=== PATIENT | male | born 1960 | race Caucasian/White ===

== ENCOUNTER 2018-12-01 14:06 | Inpatient (IN) | payer OTHER ==
[~2018-12-01] VITALS: Ht 182.9 cm; Wt 108.8 kg
[~2018-12-01 14:06] MED LIST: heparin 10,000 units/1 ML INJ ONE
[2018-12-01] MEDS ORDERED: aspirin 81mg tab.chew PO ONE (14:10)
[2018-12-01] MEDS ORDERED: normal saline 1000ML IV soln IVB ONE ×2 (14:10→15:10)
[2018-12-01] MEDS ORDERED: ondansetron/PF 4mg/2ml inj IV ONE ×2 (14:10→15:10)
[2018-12-01 14:20] LABS: BASOPHILS % (AUTO) 0.4 % (0-1); EOSINOPHILS # (AUTO) 0.3 X10'3 (0-0.9); EOSINOPHILS % (AUTO) 2.3 % (0-6); HEMATOCRIT 51.2 % (42.0-52.0); HEMOGLOBIN 17.1 g/dl (14.0-17.9); LYMPHOCYTES # (AUTO) 2.4 X10'3 (1.1-4.8); LYMPHOCYTES % (AUTO) 21.3 % (21-51); MEAN CORPUSCULAR HEMOGLOBIN 29.4 PG (27.0-31.0); MEAN CORPUSCULAR HGB CONC 33.5 % (33.0-36.5); MEAN CORPUSCULAR VOLUME 87.6 FL (78-98); MEAN PLATELET VOLUME 8.8 FL (7.4-10.4); MONOCYTES # (AUTO) 0.6 X10'3 (0-0.9); MONOCYTES % (AUTO) 5.3 % (2-12); NEUTROPHILS # (AUTO) 8.1 X10'3 (1.8-7.7); NEUTROPHILS % (AUTO) 70.7 % (42-75); PLATELET COUNT 275 X10'3 (140-440); RED BLOOD COUNT 5.84 X10'6 (4.70-6.10); RED CELL DISTRIBUTION WIDTH 13.8 % (11.5-14.5); WHITE BLOOD COUNT 11.4 X10'3 (4.5-11.0)
[2018-12-01] MEDS: morphine 4 MG/ML inj SYRINge IV PRN ×3 (14:23→16:28)
[2018-12-01 14:40] LABS: ALANINE AMINOTRANSFERASE 38 U/L (12-78); ALBUMIN 4.4 G/DL (3.4-5.0); ALBUMIN/GLOBULIN RATIO 1.3 (1.1-1.5); ALKALINE PHOSPHATASE 71 IU/L (46-116); ANION GAP 13 (8-16); ASPARTATE AMINO TRANSFERASE 26 U/L (10-37); BILIRUBIN,TOTAL 0.7 MG/DL (0.1-1.0); BLOOD UREA NITROGEN 18 MG/DL (7-18); BUN/CREATININE RATIO 15.4 (5.4-32.0); CALCIUM 9.3 MG/DL (8.5-10.1); CHLORIDE 101 MMOL/L (99-107); CREATININE 1.17 MG/DL (0.60-1.10); GLUCOSE 114 MG/DL (70-104); SODIUM 140 MMOL/L (135-145); TOTAL CARBON DIOXIDE 26.4 MMOL/L (24-32); TOTAL PROTEIN 7.9 G/DL (6.4-8.2); eGFR 64 ML/MIN
[2018-12-01 14:46] LABS: MAGNESIUM 2.2 MG/DL (1.5-2.4)
--- NOTE | 2018-12-01 15:01 | NUR ---
PT TROP 0.07 AWAITING CARDIOLOGY. [facility] CP 04/18 INFORMED
[2018-12-01] MEDS ORDERED: enoxaparin 100mg/ml syringe SUBCUT ONE (15:10)
--- NOTE | 2018-12-01 15:24 | NUR ---
PT MEDICATED FOR PAIN. CP 3-02/16 2ND PIV STARTED
[2018-12-01 15:27] LABS: ETHANOL < 0.010 GM/DL (0.0-0.010); LIPASE 178 U/L (73-393)
[2018-12-01] MEDS ORDERED: nitroGLYCERIN 1gm ointment UD TP ONE (15:30)
[2018-12-01] MEDS ORDERED: magnesium Cl slow-release 64mg tablet PO PRN (15:50)
[2018-12-01] MEDS ORDERED: mag hydrox/Alum hydrox/simeth 30ml oral suspension PO PRN (15:50)
[2018-12-01] MEDS ORDERED: magnesium 4gm in 100ml NS 100 ML IV PRN (15:50)
[2018-12-01] MEDS ORDERED: acetaminophen 325mg tablet PO PRN ×2 (15:50)
[2018-12-01] MEDS ORDERED: nitroGLYCERIN-Tridil 50MG/D5W 250 ML IV PRN ×3 (15:50→16:19)
[2018-12-01] MEDS ORDERED: magnesium 2GM in 50ml NS 50 ML IV PRN (15:50)
[2018-12-01] MEDS ORDERED: potassium Cl 20 mEq SR tablet PO PRN ×2 (15:50)
[2018-12-01] MEDS ORDERED: potassium Cl 40MEQ/NS 500ml 500 ML IV PRN ×2 (15:50)
[2018-12-01] MEDS ORDERED: morphine 4 MG/ML inj SYRINge IV PRN (15:50)
[2018-12-01] MEDS ORDERED: magnesium hydroxide 30ml (MOM) UD suspension PO PRN (15:50)
[2018-12-01] MEDS ORDERED: nitroGLYCERIN 0.4mg SUBLingual tab SL PRN (15:50)
[2018-12-01] MEDS ORDERED: mag hydrox/Alum hydrox/simeth 30ml oral suspension PO ONE (16:10)
[2018-12-01 16:12] LABS: PHOSPHORUS 3.3 MG/DL (2.3-4.5)
[2018-12-01] MEDS ORDERED: iohexol 350MG/ML 100ml bottle IV ONE (16:22)
[2018-12-01] MEDS: pantoprazole 40 MG vial IV SCH (16:24)
--- NOTE | 2018-12-01 16:40 | NUR ---
REPORT TO ART PT TO CT AND THEN TO FLOOR
[2018-12-01 17:30] VITALS: BP 106/67
[2018-12-01] MEDS: ondansetron/PF 4mg/2ml inj IV PRN (17:30)
--- NOTE | 2018-12-01 17:30 | NUR ---
Patient admitted into 310 up from ER. Adult female with him by bedside. Placed on monitor. VSS. Denied any pain. Placed on 2 LPM NC O2. No s/s of distress. Call light in reach. Side rails x 2, bed in low position for safety.
--- NOTE | 2018-12-01 18:00 | NUR ---
Patient in room MED 310. I have received report from Art RN and had the opportunity to ask questions and assume patient care. at bedside pt in no apparent distress or pain.
--- NOTE | 2018-12-01 18:30 | NUR ---
pt vomited 600ml. states he feels better now. will continue to monitor.
--- NOTE | 2018-12-01 18:39 | NUR ---
Orientee documentation: I have reviewed and agree with all interventions, assessments performed and documented by ALEXANDRIA Abreu .
[2018-12-01 19:00] VITALS: BP 103/65
[2018-12-01] MEDS: normal saline 1000ml 1,000 ML IV SCH (19:00)
[2018-12-01] MEDS: metoprolol tartrate 12.5mg (1/2 tablet) PO SCH (20:00)
[2018-12-01] MEDS: K and/or MAG REPLACEMENT MC SCH (20:01)
[2018-12-01] MEDS: enoxaparin 100mg/ml syringe SUBCUT SCH (20:22)
[2018-12-01 21:00] VITALS: BP 105/65
[2018-12-01] MEDS ORDERED: temazepam 15mg capsule PO PRN (21:00)
--- NOTE | 2018-12-01 21:24 | NUR ---
called Dr Womack re 6 hr trop back at 2.11, up from 0.37. pt getting anticoag'd with lovenox 100mg BID, on nitro gtt for chest pain. EKG SR and pt asymptomatic. no new orders at this time.
[2018-12-01] MEDS ORDERED: metoclopramide 5 mg/ml inj IV PRN (21:45)
[2018-12-01 23:00] VITALS: BP 124/79
[2018-12-02] VITALS (17 sets, daily range): BP systolic 99–124; BP diastolic 58–77
[2018-12-02] MEDS: normal saline 1000ml 1,000 ML IV SCH ×3 (01:50→21:50)
[2018-12-02 02:44] LABS: HEMATOCRIT 43.8 % (42.0-52.0); HEMOGLOBIN 14.6 g/dl (14.0-17.9); MEAN CORPUSCULAR HEMOGLOBIN 29.2 PG (27.0-31.0); MEAN CORPUSCULAR HGB CONC 33.2 % (33.0-36.5); MEAN PLATELET VOLUME 8.7 FL (7.4-10.4); PLATELET COUNT 214 X10'3 (140-440); RED BLOOD COUNT 4.98 X10'6 (4.70-6.10); RED CELL DISTRIBUTION WIDTH 13.3 % (11.5-14.5); WHITE BLOOD COUNT 11.5 X10'3 (4.5-11.0)
[2018-12-02 02:55] LABS: ALBUMIN 3.4 G/DL (3.4-5.0); ANION GAP 10 (8-16); BLOOD UREA NITROGEN 16 MG/DL (7-18); BUN/CREATININE RATIO 15.4 (5.4-32.0); CALCIUM 7.4 MG/DL (8.5-10.1); CHLORIDE 105 MMOL/L (99-107); CHOL/HDL RATIO 3.6 (0.00-4.99); CHOLESTEROL 124 MG/DL (0-200); CREATININE 1.04 MG/DL (0.60-1.10); GLUCOSE 137 MG/DL (70-104); HDL CHOLESTEROL 34 MG/DL (35-60); LDL CHOLESTEROL 77 MG/DL (50-100); MAGNESIUM 1.8 MG/DL (1.5-2.4); PHOSPHORUS 3.1 MG/DL (2.3-4.5); SODIUM 139 MMOL/L (135-145); TOTAL CARBON DIOXIDE 23.8 MMOL/L (24-32); TRIGLYCERIDES 168 MG/DL (20-135); eGFR 73 ML/MIN
--- NOTE | 2018-12-02 03:11 | NUR ---
called Dr Womack re 12hr trop back at 13.94, EKG showing SR no ST elevation, VSS, chest pain 3/10 with no changes. still on nitro gtt at 10mcg. only new order at this time is to make pt NPO for possible cath with Dr Simms in AM.
[2018-12-02] MEDS: ondansetron/PF 4mg/2ml inj IV PRN (06:57)
[2018-12-02] MEDS ORDERED: proCHLORperazine 10 MG/2 ml inj IV PRN (07:25)
--- NOTE | 2018-12-02 07:25 | NUR ---
Pt had a 150ml emesis. Treated with Zofran. Spoke with Dr. Valadez who wanted updates. Orders received. Will call Dr. Simms.
--- NOTE | 2018-12-02 07:29 | NUR ---
Notified Dr. Simms of Trop, nausea.
[2018-12-02] MEDS ORDERED: pantoprazole 40mg Tablet.DR PO SCH (07:30)
[2018-12-02] MEDS: K and/or MAG REPLACEMENT MC SCH (08:00)
[2018-12-02] MEDS: enoxaparin 100mg/ml syringe SUBCUT SCH ×2 (08:00→20:00)
[2018-12-02] MEDS: tirofiban 5mg in NS 100mL 100 ML IV SCH ×3 (08:17→15:18)
--- NOTE | 2018-12-02 08:17 | NUR ---
Notified Dr. Simms regarding trop of 29.35. He said to not do any more Trop and to make the pt npo after breakfast.
[2018-12-02] MEDS: aspirin 325mg tablet PO SCH (08:30)
[2018-12-02] MEDS: atorvastatin 20mg tablet PO SCH (09:08)
[2018-12-02] MEDS: pantoprazole 40 MG vial IV SCH (09:08)
[2018-12-02] MEDS: metoprolol tartrate 12.5mg (1/2 tablet) PO SCH ×2 (09:08→21:12)
[2018-12-02] MEDS ORDERED: CARV6.253 PO ×2 (09:57→10:02)
[2018-12-02] MEDS ORDERED: FLU VACC QUAD 2018(5 YR UP)/PF 60 MCG/0.5 ML SYRINGE IM ONE (10:00)
[2018-12-02] MEDS ORDERED: GLUC100017 (10:01)
[2018-12-02] MEDS ORDERED: LOSA25TA41 PO (10:03)
[2018-12-02] MEDS ORDERED: ASPI-611 PO (10:03)
[2018-12-02] MEDS ORDERED: ATOR-2 PO (10:04)
[2018-12-02] MEDS ORDERED: LORA10TA7 PO (10:04)
--- NOTE | 2018-12-02 10:08 | NUR ---
PAGER ID: [phone] MESSAGE: Dr. Gupta, the med rec for pt Ownes in 310 is complete and ready for your review. Art, [phone]
[2018-12-02] MEDS ORDERED: iohexol 350MG/ML 100ml bottle IV ONE (16:05)
[2018-12-02] MEDS ORDERED: LIDOcaine 1% (10mg/ml)w/preservative injection 20ml MDV ONE (16:05)
[2018-12-02] MEDS ORDERED: fentaNYL/PF 50MCG/1 ML 2ML syringe ONE (16:06)
[2018-12-02] MEDS ORDERED: midazolam 2 mg/2 ml injection ONE ×2 (16:06→16:42)
--- NOTE | 2018-12-02 16:18 | NUR ---
Pt to forestry farm laborer
[2018-12-02] MEDS ORDERED: proCHLORperazine 10 MG/2 ml inj ONE (16:22)
[2018-12-02] MEDS ORDERED: heparin 1,000unit/ml 10ml vial 10 ML ONE (16:47)
[2018-12-02] MEDS ORDERED: iohexol 350 MG/ML 50ML vial IV ONE (16:59)
[2018-12-02] MEDS ORDERED: heparin 25,000 UNIT/250ml bag 250 ML IV ONE (17:33)
--- NOTE | 2018-12-02 18:01 | NUR ---
Pt returned from agriculture laboratory technician. Pt procedure sight is closed, no hematoma present at this time. Pt instructed to lay flat. Pt orders faxed to pharmacy.
[2018-12-02] MEDS ORDERED: HYDROcodone/acetaminophen 5mg/325mg tablet PO PRN (18:10)
[2018-12-02] MEDS ORDERED: OXAZEpam 15mg capsule PO PRN (18:10)
--- NOTE | 2018-12-02 18:26 | NUR ---
PAGER ID: [phone] MESSAGE: [phone] [place], Please call nurse back to clarify medication orders. Lois ext [phone]
[2018-12-02] MEDS: heparin 25,000 UNIT/250ml bag 250 ML IV SCH (18:29)
[2018-12-02 18:43] LABS: BASOPHILS % (AUTO) 0.1 % (0-1); EOSINOPHILS # (AUTO) 0.2 X10'3 (0-0.9); EOSINOPHILS % (AUTO) 1.1 % (0-6); HEMATOCRIT 40.9 % (42.0-52.0); HEMOGLOBIN 13.6 g/dl (14.0-17.9); LYMPHOCYTES # (AUTO) 0.8 X10'3 (1.1-4.8); MEAN CORPUSCULAR HEMOGLOBIN 29.5 PG (27.0-31.0); MEAN CORPUSCULAR HGB CONC 33.3 % (33.0-36.5); MEAN CORPUSCULAR VOLUME 88.6 FL (78-98); MEAN PLATELET VOLUME 8.2 FL (7.4-10.4); MONOCYTES # (AUTO) 0.6 X10'3 (0-0.9); MONOCYTES % (AUTO) 4.5 % (2-12); NEUTROPHILS # (AUTO) 12.3 X10'3 (1.8-7.7); NEUTROPHILS % (AUTO) 88.3 % (42-75); PLATELET COUNT 219 X10'3 (140-440); RED BLOOD COUNT 4.61 X10'6 (4.70-6.10); RED CELL DISTRIBUTION WIDTH 13.4 % (11.5-14.5); WHITE BLOOD COUNT 13.9 X10'3 (4.5-11.0)
--- NOTE | 2018-12-02 18:47 | NUR ---
Problems reprioritized. Patient report given, questions answered & plan of care reviewed with ALEXANDRIA Nascimento.
[2018-12-02 19:00] LABS: INR 1.1 INR; PARTIAL THROMBOPLASTIN TIME 44 SECONDS (22-32); PROTHROMBIN TIME 11.2 SECONDS (9.0-12.0)
[2018-12-02] MEDS: carvedilol 6.25mg tablet PO SCH (21:12)
[2018-12-03] VITALS (7 sets, daily range): BP systolic 86–102; BP diastolic 55–64
[2018-12-03 01:27] LABS: EOSINOPHILS % (AUTO) 0 % (0-6)
[2018-12-03 01:28] LABS: BASOPHILS # (AUTO) 0.1 X10'3 (0-0.2); BASOPHILS % (AUTO) 0.4 % (0-1); HEMATOCRIT 38.3 % (42.0-52.0); HEMOGLOBIN 13.1 g/dl (14.0-17.9); LYMPHOCYTES # (AUTO) 0.7 X10'3 (1.1-4.8); LYMPHOCYTES % (AUTO) 5.2 % (21-51); MEAN CORPUSCULAR HEMOGLOBIN 30.3 PG (27.0-31.0); MEAN CORPUSCULAR HGB CONC 34.3 % (33.0-36.5); MEAN CORPUSCULAR VOLUME 88.5 FL (78-98); MONOCYTES # (AUTO) 0.2 X10'3 (0-0.9); MONOCYTES % (AUTO) 1.5 % (2-12); NEUTROPHILS % (AUTO) 92.9 % (42-75); PLATELET COUNT 180 X10'3 (140-440); RED BLOOD COUNT 4.33 X10'6 (4.70-6.10); RED CELL DISTRIBUTION WIDTH 12.4 % (11.5-14.5)
[2018-12-03 01:38] LABS: ALBUMIN 3.1 G/DL (3.4-5.0); ANION GAP 10 (8-16); BLOOD UREA NITROGEN 12 MG/DL (7-18); CALCIUM 7.5 MG/DL (8.5-10.1); CHLORIDE 102 MMOL/L (99-107); GLUCOSE 148 MG/DL (70-104); MAGNESIUM 1.7 MG/DL (1.5-2.4); PHOSPHORUS 1.8 MG/DL (2.3-4.5); POTASSIUM 3.5 MMOL/L (3.5-5.1); SODIUM 136 MMOL/L (135-145); TOTAL CARBON DIOXIDE 23.9 MMOL/L (24-32); eGFR 62 ML/MIN
[2018-12-03] MEDS: heparin 10,000 units/1 ML INJ IV PRN ×3 (02:25→22:22)
[2018-12-03] MEDS: heparin 25,000 UNIT/250ml bag 250 ML IV SCH ×3 (02:26→22:23)
[2018-12-03] MEDS ORDERED: diltiazem 5mg/ml 5ml inj. IV ONE (05:25)
[2018-12-03 05:54] LABS: CHOL/HDL RATIO 2.4 (0.00-4.99); CHOLESTEROL 82 MG/DL (0-200); HDL CHOLESTEROL 34 MG/DL (35-60); LDL CHOLESTEROL 47 MG/DL (50-100); TRIGLYCERIDES 86 MG/DL (20-135)
[2018-12-03] MEDS: diltiazem-D5W 125mg/125ml 125 ML IV SCH ×2 (06:15→12:13)
[2018-12-03] MEDS: K and/or MAG REPLACEMENT MC SCH (07:05)
[2018-12-03] MEDS ORDERED: non-formulary drug (Aspirin (Aspir 81) 1 TAB) PO SCH (08:00)
[2018-12-03] MEDS ORDERED: non-formulary drug (Atorvastatin Calcium 1 TAB) PO SCH (08:00)
[2018-12-03] MEDS: atorvastatin 20mg tablet PO SCH ×2 (08:00→08:13)
[2018-12-03] MEDS: pantoprazole 40 MG vial IV SCH (08:13)
[2018-12-03] MEDS: aspirin 325mg tablet PO SCH (08:13)
[2018-12-03] MEDS: metoprolol tartrate 12.5mg (1/2 tablet) PO SCH (08:15)
[2018-12-03] MEDS: carvedilol 6.25mg tablet PO SCH ×2 (08:16→20:00)
[2018-12-03] MEDS: losartan 25mg tablet PO SCH (08:16)
[2018-12-03] MEDS ORDERED: MESSAGE TO NURSING PO ONE ×5 (08:55→10:00)
[2018-12-03] MEDS ORDERED: insulin glargine (Lantus) pen - multi-dose SQ PRN (08:55)
[2018-12-03] MEDS ORDERED: dextrose 50%-water 50ml dispensing syringe IV PRN (08:55)
[2018-12-03] MEDS: insulin Lispro (HumaLOG) vial - multi-dose SQ SCH ×2 (09:00→13:00)
[2018-12-03] MEDS: normal saline 1000ml 1,000 ML IV SCH ×2 (09:37→17:50)
[2018-12-03] MEDS ORDERED: ringers solution, lacted 1,000 ML IV ONE (10:29)
[2018-12-03 10:46] LABS: ABG BASE EXCESS 1.7 mmol/L (-2.0-3.0); ABG PCO2 (T) 35.1 mmHg (35.0-48.0); ABG PH (T) 7.471 (7.350-7.450); ABG PO2 (T) 73.1 mmHg (83-108); ALLEN'S TEST Positive; FCOHb 0.2 % (0.5-1.5); FMetHb 0.1 % (0.3-1.12); FO2Hb 95.7 % (94-100); TOTAL HEMOGLOBIN 13.3 G/dl (14.0-18.0)
[2018-12-03 11:05] LABS: HEMATOCRIT 37.7 % (42.0-52.0); HEMOGLOBIN 12.9 g/dl (14.0-17.9); MEAN CORPUSCULAR HGB CONC 34.2 % (33.0-36.5); MEAN CORPUSCULAR VOLUME 87.6 FL (78-98); MEAN PLATELET VOLUME 9.4 FL (7.4-10.4); PLATELET COUNT 174 X10'3 (140-440); RED BLOOD COUNT 4.31 X10'6 (4.70-6.10); WHITE BLOOD COUNT 14.3 X10'3 (4.5-11.0)
[2018-12-03 11:20] LABS: ALBUMIN 3.2 G/DL (3.4-5.0); ANION GAP 12 (8-16); BLOOD UREA NITROGEN 11 MG/DL (7-18); BUN/CREATININE RATIO 9.2 (5.4-32.0); CALCIUM 7.6 MG/DL (8.5-10.1); CHLORIDE 101 MMOL/L (99-107); CREATININE 1.19 MG/DL (0.60-1.10); GLUCOSE 119 MG/DL (70-104); POTASSIUM 3.4 MMOL/L (3.5-5.1); SODIUM 137 MMOL/L (135-145); TOTAL CARBON DIOXIDE 23.8 MMOL/L (24-32); eGFR 62 ML/MIN
--- NOTE | 2018-12-03 11:26 | NUR ---
Contacted PRAVIN Huston for Dr. Amin. Patient had Lopressor 12.5 mg and Coreg 6.25 mg listed on eMar. Patient takes Coreg 6.25 mg at home. eMar also shows 2 doses for Lipitor, 40mg and 80 mg. Home dose is 80mg of Lipitor. Per PRAVIN Huston, discontinue Lopressor 12.5 mg and continue Coreg 6.25mg and continue home dose of Lipitor 80mg unless otherwise ordered.
[2018-12-03 11:30] LABS: INR 1.2 INR
[2018-12-03 11:32] LABS: PARTIAL THROMBOPLASTIN TIME 95 SECONDS (22-32)
--- NOTE | 2018-12-03 11:35 | NUR ---
Patient given a bolus of Heparin just prior to pre-op labs. Expected results. Addendum: 12/03/18 at 1136 by Judith Sanchez RN Amended: Links added.
--- NOTE | 2018-12-03 17:33 | NUR ---
DR. CRAWFORD called and informed to call Dr. BANKS and inform him about the patient's current WBCs and that the patient had a slight temp earlier that has since come down. Dr. BANKS notified and no new orders, he is aware of current labs.
--- NOTE | 2018-12-03 18:14 | NUR ---
Orienteer documentation: I have reviewed and agree with all interventions, assessments performed and documented by Judith IBRAHIM.
[2018-12-03] MEDS: mupirocin 2% nasal ointment 1gm UD NS SCH (20:00)
[2018-12-03] MEDS ORDERED: metoprolol tartrate 25mg tablet PO SCH (20:00)
[2018-12-03] MEDS ORDERED: mupirocin 2% ointment 22GM NS SCH (20:00)
[2018-12-03] MEDS: CefTRIAXone/D5W-Rocephin 1gm 50 ML IV SCH (20:16)
[2018-12-04] VITALS (18 sets, daily range): BP systolic 92–141; BP diastolic 57–86
[2018-12-04] MEDS: normal saline 1000ml 1,000 ML IV SCH ×3 (03:50→23:50)
[2018-12-04 05:29] LABS: BASOPHILS % (AUTO) 0.2 % (0-1); EOSINOPHILS # (AUTO) 0.1 X10'3 (0-0.9); EOSINOPHILS % (AUTO) 1.3 % (0-6); HEMATOCRIT 36.8 % (42.0-52.0); HEMOGLOBIN 12.7 g/dl (14.0-17.9); LYMPHOCYTES # (AUTO) 1.1 X10'3 (1.1-4.8); LYMPHOCYTES % (AUTO) 10.7 % (21-51); MEAN CORPUSCULAR HEMOGLOBIN 30.3 PG (27.0-31.0); MEAN CORPUSCULAR HGB CONC 34.5 % (33.0-36.5); MEAN CORPUSCULAR VOLUME 87.9 FL (78-98); MEAN PLATELET VOLUME 9.6 FL (7.4-10.4); MONOCYTES # (AUTO) 0.6 X10'3 (0-0.9); MONOCYTES % (AUTO) 5.8 % (2-12); NEUTROPHILS # (AUTO) 8.2 X10'3 (1.8-7.7); PLATELET COUNT 171 X10'3 (140-440); RED BLOOD COUNT 4.18 X10'6 (4.70-6.10); RED CELL DISTRIBUTION WIDTH 13.5 % (11.5-14.5); WHITE BLOOD COUNT 9.9 X10'3 (4.5-11.0)
[2018-12-04 05:54] LABS: ALBUMIN 3.1 G/DL (3.4-5.0); ANION GAP 10 (8-16); BLOOD UREA NITROGEN 13 MG/DL (7-18); BUN/CREATININE RATIO 10.2 (5.4-32.0); CALCIUM 7.6 MG/DL (8.5-10.1); CHLORIDE 101 MMOL/L (99-107); CREATININE 1.27 MG/DL (0.60-1.10); GLUCOSE 120 MG/DL (70-104); MAGNESIUM 1.9 MG/DL (1.5-2.4); PHOSPHORUS 1.7 MG/DL (2.3-4.5); POTASSIUM 3.3 MMOL/L (3.5-5.1); SODIUM 137 MMOL/L (135-145); TOTAL CARBON DIOXIDE 25.7 MMOL/L (24-32); eGFR 58 ML/MIN
[2018-12-04] MEDS ORDERED: famotidine 20mg tablet PO ONE (06:00)
[2018-12-04] MEDS ORDERED: LORazepam 2 mg/ml vial IV ONE (06:00)
[2018-12-04 06:57] LABS: INR 1.1 INR; PROTHROMBIN TIME 11.1 SECONDS (9.0-12.0)
[2018-12-04] MEDS ORDERED: ceFAZolin 1000mg inj ONE (07:04)
[2018-12-04] MEDS ORDERED: heparin 10,000 units/1 ML INJ ONE (07:04)
[2018-12-04] MEDS ORDERED: LIDOcaine 1% 30ml preserv. free vial ONE (07:04)
[2018-12-04] MEDS ORDERED: epiNEPHrine 1 mg/ml inj ONE (07:04)
[2018-12-04] MEDS ORDERED: ROPIVAcaine 0.5% (5mg/ml) 30ml vial ONE (07:04)
[2018-12-04] MEDS: pantoprazole 40 MG vial IV SCH (07:55)
[2018-12-04] MEDS: carvedilol 6.25mg tablet PO SCH ×2 (07:55→20:56)
[2018-12-04] MEDS: losartan 25mg tablet PO SCH (07:55)
[2018-12-04] MEDS: mupirocin 2% nasal ointment 1gm UD NS SCH ×2 (08:00→20:56)
[2018-12-04] MEDS: K and/or MAG REPLACEMENT MC SCH (08:00)
[2018-12-04] MEDS: atorvastatin 20mg tablet PO SCH (08:00)
[2018-12-04] MEDS: CefTRIAXone/D5W-Rocephin 1gm 50 ML IV SCH (08:00)
[2018-12-04] MEDS: insulin regular, human 100 UNIT in normal saline 100ml IV soln 100 ML IV SCH ×2 (08:00)
[2018-12-04] MEDS ORDERED: MIDAZolam 1mg/ml 10ml vial ONE (08:27)
[2018-12-04] MEDS ORDERED: fentaNYL /PF 50mcg/ml 5ml ampule ONE ×2 (08:27)
[2018-12-04] MEDS ORDERED: phenylephrine 10mg/ml inj. ONE (08:28)
[2018-12-04] MEDS: aspirin 325mg tablet PO SCH (08:30)
[2018-12-04] MEDS ORDERED: albumin (Human) 5% 250ml 250 ML IV ONE (08:31)
[2018-12-04] MEDS ORDERED: etomidate 2mg/ml inj. ONE (08:31)
[2018-12-04] MEDS ORDERED: pancuronium br 1mg/ml inj IV ONE (08:31)
--- NOTE | 2018-12-04 08:32 | NUR ---
Pt prep complete, pt picked up by OR staff to go have CABG procedure. Pt's property retained in room 310
[2018-12-04] MEDS ORDERED: ceFAZolin 1GM/D5W- ADD-VANTAGE 50 ML IV ONE (09:00)
[2018-12-04] MEDS ORDERED: vancomycin/NS 1 GM ADD-VANTAGE 250 ML IV ONE (09:00)
[2018-12-04 09:26] LABS: ABG HCO3 24.6 mmol/L (22.0-26.0); ABG OXYGEN SATURATION 99.3 % (95-98); ABG PCO2 44.3 mmHg (35.0-45.0); ABG PH 7.362 (7.350-7.450); CL (ABG) 104 mmol/L (99-107); FCOHb 0.7 % (0.5-1.5); FMetHb 0.2 % (0.3-1.12); FO2Hb 98.4 % (94-100); GLUCOSE (ABG) 119 mg/dl (70-105); IONIZED CA (ABG) 1.08 mmol/L (1.03-1.32); K (ABG) 3.5 mmol/L (3.3-5.1); NA (ABG) 133 mmol/L (135-145)
[2018-12-04] MEDS ORDERED: papaverine 30 mg/ml 2ml inj. IA ONE (09:59)
[2018-12-04 10:01] LABS: ABG BASE EXCESS VENOUS -1.7 mmol/L; ABG HCO3 VENOUS 23.5 mmol/L; ABG PCO2 VENOUS 41.7 mmHg; ABG PO2 VENOUS 40.5 mmHg; CL (ABG) 103 mmol/L (99-107); FHHb VENOUS 21.2 %; FMetHb VENOUS 0.3 %; FO2Hb VENOUS 77.5 %; GLUCOSE (ABG) 127 mg/dl (70-105); IONIZED CA (ABG) 1.05 mmol/L (1.03-1.32); K (ABG) 3.6 mmol/L (3.3-5.1); NA (ABG) 132 mmol/L (135-145); TOTAL HEMOGLOBIN 11.6 G/dl (14.0-18.0)
[2018-12-04] MEDS ORDERED: ePHEDrine 50MG/ML INJ. ONE (10:34)
[2018-12-04] MEDS ORDERED: epiNEPHrine 0.1mg/ml 10ml syringe ONE (10:34)
[2018-12-04 10:36] LABS: ABG BASE EXCESS VENOUS -3.5 mmol/L; ABG HCO3 VENOUS 23.1 mmol/L; ABG PCO2 VENOUS 48.4 mmHg; ABG PO2 VENOUS 35.3 mmHg; CL (ABG) 102 mmol/L (99-107); FCOHb VENOUS 0.9 %; FHHb VENOUS 33.9 %; FMetHb VENOUS 0.3 %; FO2Hb VENOUS 64.9 %; GLUCOSE (ABG) 258 mg/dl (70-105); IONIZED CA (ABG) 1.06 mmol/L (1.03-1.32); K (ABG) 3.3 mmol/L (3.3-5.1); NA (ABG) 132 mmol/L (135-145); TOTAL HEMOGLOBIN 12.1 G/dl (14.0-18.0)
[2018-12-04] MEDS: morphine 4 MG/ML inj SYRINge IV PRN ×2 (11:38→13:41)
--- NOTE | 2018-12-04 11:45 | NUR ---
Received to room 2010, accompanied by MD Soto and MD Heredia and surgical crew. Placed on ventilator, to site monitor, arterial line and PA line pressure monitored. Chest tubes to suction at 20 cm. Pulliam cath to gravity drainage. Dressings are dry and intact. See assessment record. All vasoactive drugs are infusing via central line.
[2018-12-04 11:46] LABS: BASOPHILS % (AUTO) 0 % (0-1); EOSINOPHILS # (AUTO) 0.1 X10'3 (0-0.9); EOSINOPHILS % (AUTO) 0.6 % (0-6); HEMATOCRIT 32.6 % (42.0-52.0); HEMOGLOBIN 11.2 g/dl (14.0-17.9); LYMPHOCYTES # (AUTO) 0.9 X10'3 (1.1-4.8); LYMPHOCYTES % (AUTO) 6.7 % (21-51); MEAN CORPUSCULAR HEMOGLOBIN 30.3 PG (27.0-31.0); MEAN CORPUSCULAR HGB CONC 34.4 % (33.0-36.5); MEAN PLATELET VOLUME 8.1 FL (7.4-10.4); MONOCYTES # (AUTO) 0.3 X10'3 (0-0.9); MONOCYTES % (AUTO) 2.2 % (2-12); NEUTROPHILS # (AUTO) 12.2 X10'3 (1.8-7.7); NEUTROPHILS % (AUTO) 90.5 % (42-75); PLATELET COUNT 140 X10'3 (140-440); RED CELL DISTRIBUTION WIDTH 13.7 % (11.5-14.5); WHITE BLOOD COUNT 13.5 X10'3 (4.5-11.0)
[2018-12-04] MEDS ORDERED: ringers solution, lacted 1,000 ML IV SCH ×2 (11:48→11:53)
[2018-12-04] MEDS ORDERED: propofol 1000mg/100ml bottle 100 ML IV PRN ×2 (11:48→11:53)
[2018-12-04] MEDS ORDERED: ondansetron/PF 4mg/2ml inj IV PRN ×2 (11:50→11:55)
[2018-12-04] MEDS ORDERED: morphine 4 MG/ML inj SYRINge IV PRN ×2 (11:50)
[2018-12-04] MEDS ORDERED: fentaNYL/PF 50MCG/1 ML 2ML syringe IV PRN ×2 (11:50)
[2018-12-04 11:51] LABS: ABG BASE EXCESS -2.2 mmol/L (-2.0-3.0); ABG HCO3 23.5 mmol/L (22.0-26.0); ABG OXYGEN SATURATION 95.6 % (95-98); ABG PCO2 (T) 43.9 mmHg (35.0-48.0); ABG PH (T) 7.346 (7.350-7.450); ABG PO2 (T) 92.2 mmHg (83-108); FCOHb 0.4 % (0.5-1.5); FMetHb 0.1 % (0.3-1.12); FO2Hb 95.1 % (94-100); MINUTE VOLUME 10 L/min; PEEP 5 cm H2O; RESPIRATORY RATE 12 b/min; RESPIRATORY RATE (OBSERVED) 16 b/min; TIDAL VOLUME 650 mL; TOTAL HEMOGLOBIN 12.1 G/dl (14.0-18.0)
[2018-12-04] MEDS ORDERED: sodium phosphate inj. 30 MMOL in dextrose 5%-water 250 ML IV PRN (13:20)
[2018-12-04] MEDS ORDERED: potassium Cl 20mEq/100mL bag 100 ML IV PRN (13:20)
[2018-12-04] MEDS ORDERED: Neutra Phos packet PO PRN (13:20)
[2018-12-04] MEDS ORDERED: magnesium 4gm in 100ml NS 100 ML IV PRN (13:20)
[2018-12-04] MEDS ORDERED: sodium phosphate inj. 15 MMOL in dextrose 5%-water 150 ML IV PRN (13:20)
[2018-12-04] MEDS ORDERED: nitroGLYCERIN-Tridil 50MG/D5W 250 ML IV PRN (14:50)
[2018-12-04 15:25] LABS: ALANINE AMINOTRANSFERASE 67 U/L (12-78); ALBUMIN 2.8 G/DL (3.4-5.0); ALKALINE PHOSPHATASE 63 IU/L (46-116); ANION GAP 11 (8-16); ASPARTATE AMINO TRANSFERASE 81 U/L (10-37); BILIRUBIN,TOTAL 1.3 MG/DL (0.1-1.0); BLOOD UREA NITROGEN 13 MG/DL (7-18); BUN/CREATININE RATIO 12.1 (5.4-32.0); CHLORIDE 103 MMOL/L (99-107); CREATININE 1.07 MG/DL (0.60-1.10); GLUCOSE 169 MG/DL (70-104); MAGNESIUM 1.8 MG/DL (1.5-2.4); PHOSPHORUS 2.6 MG/DL (2.3-4.5); POTASSIUM 3.3 MMOL/L (3.5-5.1); SODIUM 137 MMOL/L (135-145); TOTAL CARBON DIOXIDE 22.6 MMOL/L (24-32); TOTAL PROTEIN 5.7 G/DL (6.4-8.2); eGFR 70 ML/MIN
[2018-12-04] MEDS: magnesium 2GM in 50ml NS 50 ML IV PRN ×2 (16:01→23:47)
[2018-12-04] MEDS: ceFAZolin 1GM/D5W- ADD-VANTAGE 50 ML IV SCH ×2 (16:01→23:47)
--- NOTE | 2018-12-04 16:40 | NUR ---
Patient extubated by Dr. Soto at 16 10 without incident. MD did not want weaning parameters or blood gas prior to extubation and extubated patient himself with RN at bedside. Patient placed on 4L NC and saturation well at 94-96%, tachypneic at 20-35 RR. MD at bedside and aware.
[2018-12-04] MEDS: potassium Cl 20mEq/100mL bag 100 ML IV PRN ×4 (16:43→22:02)
[2018-12-04] MEDS: HYDROcodone/acetaminophen 10/325mg tab PO PRN (17:10)
[2018-12-04] MEDS: ketorolac trometh. 30mg/ml inj. IV SCH ×2 (17:35→20:57)
--- NOTE | 2018-12-04 18:26 | NUR ---
Problems reprioritized. Patient report given, questions answered & plan of care reviewed with Meera IBRAHIM.
--- NOTE | 2018-12-04 18:30 | NUR ---
Received report on pt in room 2010 from ALEXANDRIA Smith. Pt awake and alert, speech is clear, denies numbness and tingling, moving all extremities. Tridil infusing via central line at 10mcg/min to maintain systolic less than 140, Dopamine to maintain CI of 2.0, Insulin currently turned off per insulin gtt protocol to keep glucose levels between 110 and 150. Pt on 4L nasal cannula maintaining O2 sat greater than 93. Chest tubes to suction at 20cm with serosanguinous output, symmetrical rise and fall of chest cavity with no crepitus noted, dressings are clean, dry, and intact. On radiation monitor with arterial line, CVP, and PA line pressures monitored. Pulliam cath to gravity drainage with optimal urine output. Bowel sounds hypoactive, pt tolerating water, encouraged to slowly advance to avoid nausea. See assessment record.
[2018-12-04] MEDS: lactobacillus rhamnosus 10,000 MMU CELLS/CAPSULE PO SCH (20:56)
[2018-12-04 21:08] LABS: BASOPHILS % (AUTO) 0.1 % (0-1); EOSINOPHILS % (AUTO) 0.3 % (0-6); HEMATOCRIT 32.3 % (42.0-52.0); LYMPHOCYTES # (AUTO) 0.6 X10'3 (1.1-4.8); LYMPHOCYTES % (AUTO) 5.4 % (21-51); MEAN CORPUSCULAR HEMOGLOBIN 29.9 PG (27.0-31.0); MEAN CORPUSCULAR HGB CONC 34.1 % (33.0-36.5); MEAN CORPUSCULAR VOLUME 87.8 FL (78-98); MEAN PLATELET VOLUME 8.5 FL (7.4-10.4); MONOCYTES # (AUTO) 0.4 X10'3 (0-0.9); MONOCYTES % (AUTO) 4.2 % (2-12); NEUTROPHILS # (AUTO) 9.3 X10'3 (1.8-7.7); PLATELET COUNT 187 X10'3 (140-440); RED BLOOD COUNT 3.68 X10'6 (4.70-6.10); RED CELL DISTRIBUTION WIDTH 13.4 % (11.5-14.5); WHITE BLOOD COUNT 10.3 X10'3 (4.5-11.0)
[2018-12-04 21:41] LABS: ALANINE AMINOTRANSFERASE 58 U/L (12-78); ALBUMIN 2.7 G/DL (3.4-5.0); ALBUMIN/GLOBULIN RATIO 0.9 (1.1-1.5); ALKALINE PHOSPHATASE 62 IU/L (46-116); ANION GAP 11 (8-16); ASPARTATE AMINO TRANSFERASE 62 U/L (10-37); BILIRUBIN,TOTAL 1.4 MG/DL (0.1-1.0); BLOOD UREA NITROGEN 14 MG/DL (7-18); BUN/CREATININE RATIO 14.1 (5.4-32.0); CALCIUM 7.2 MG/DL (8.5-10.1); CHLORIDE 102 MMOL/L (99-107); CREATININE 0.99 MG/DL (0.60-1.10); GLUCOSE 106 MG/DL (70-104); MAGNESIUM 2.2 MG/DL (1.5-2.4); PHOSPHORUS 2.4 MG/DL (2.3-4.5); POTASSIUM 4.3 MMOL/L (3.5-5.1); SODIUM 134 MMOL/L (135-145); TOTAL PROTEIN 5.7 G/DL (6.4-8.2); TRIGLYCERIDES 72 MG/DL (20-135); eGFR 77 ML/MIN
[2018-12-05] VITALS (24 sets, daily range): BP systolic 80–118; BP diastolic 42–76
--- NOTE | 2018-12-05 01:15 | NUR ---
Upon initial assessment of pt after receiving report, PA placement at 57cm. Throughout the evening, the PA line dampened and was no longer providing a proper waveform. Antoinette, charge nurse, evaluated PA line, looked at X-ray, and pulled PA line approximately 6cm to 51cm, waveform improved.
[2018-12-05] MEDS ORDERED: DOPamine 400mg/D5W 250ml 250 ML IV SCH (01:30)
[2018-12-05] MEDS: ketorolac trometh. 30mg/ml inj. IV SCH ×3 (02:13→14:04)
[2018-12-05 04:30] LABS: BASOPHILS % (AUTO) 0.1 % (0-1); EOSINOPHILS # (AUTO) 0.1 X10'3 (0-0.9); HEMATOCRIT 32.7 % (42.0-52.0); HEMOGLOBIN 10.9 g/dl (14.0-17.9); LYMPHOCYTES # (AUTO) 0.6 X10'3 (1.1-4.8); LYMPHOCYTES % (AUTO) 6.6 % (21-51); MEAN CORPUSCULAR HEMOGLOBIN 29.5 PG (27.0-31.0); MEAN CORPUSCULAR HGB CONC 33.3 % (33.0-36.5); MEAN CORPUSCULAR VOLUME 88.7 FL (78-98); MEAN PLATELET VOLUME 8.5 FL (7.4-10.4); MONOCYTES # (AUTO) 0.5 X10'3 (0-0.9); MONOCYTES % (AUTO) 6.3 % (2-12); NEUTROPHILS # (AUTO) 7.4 X10'3 (1.8-7.7); PLATELET COUNT 150 X10'3 (140-440); RED BLOOD COUNT 3.69 X10'6 (4.70-6.10); RED CELL DISTRIBUTION WIDTH 13.9 % (11.5-14.5); WHITE BLOOD COUNT 8.6 X10'3 (4.5-11.0)
[2018-12-05 05:10] LABS: ALBUMIN 2.6 G/DL (3.4-5.0); ANION GAP 11 (8-16); BLOOD UREA NITROGEN 14 MG/DL (7-18); CALCIUM 7.3 MG/DL (8.5-10.1); CHLORIDE 103 MMOL/L (99-107); GLUCOSE 119 MG/DL (70-104); MAGNESIUM 2.7 MG/DL (1.5-2.4); PHOSPHORUS 2.7 MG/DL (2.3-4.5); SODIUM 136 MMOL/L (135-145); TOTAL CARBON DIOXIDE 21.7 MMOL/L (24-32); eGFR 76 ML/MIN
[2018-12-05] MEDS: potassium Cl 20mEq/100mL bag 100 ML IV PRN ×2 (05:55→07:33)
--- NOTE | 2018-12-05 06:28 | NUR ---
Problems reprioritized. Patient report given, questions answered & plan of care reviewed with ALEXANDRIA Cabezas.
--- NOTE | 2018-12-05 07:38 | NUR ---
Megha COSTELLO stated accuchecks could be decreased to q4h.
[2018-12-05] MEDS: mupirocin 2% nasal ointment 1gm UD NS SCH ×2 (07:48→20:00)
[2018-12-05] MEDS: pantoprazole 40mg Tablet.DR PO SCH (07:50)
[2018-12-05] MEDS: atorvastatin 20mg tablet PO SCH (07:51)
[2018-12-05] MEDS: lactobacillus rhamnosus 10,000 MMU CELLS/CAPSULE PO SCH ×2 (07:51→20:00)
[2018-12-05] MEDS: aspirin 325mg tablet PO SCH (07:52)
[2018-12-05] MEDS: losartan 25mg tablet PO SCH (07:53)
[2018-12-05] MEDS: carvedilol 6.25mg tablet PO SCH ×2 (07:53→19:59)
[2018-12-05] MEDS: ceFAZolin 1GM/D5W- ADD-VANTAGE 50 ML IV SCH (07:56)
[2018-12-05] MEDS: K and/or MAG REPLACEMENT MC SCH (08:00)
[2018-12-05] MEDS: diltiazem-D5W 125mg/125ml 125 ML IV SCH (08:15)
--- NOTE | 2018-12-05 08:30 | NUR ---
Dr. Soto saw pt. Orders received to stop Dopamine, DC CVL. PA/ENEIDA, ART line and F/C. Charge nurse aware.
[2018-12-05] MEDS: CefTRIAXone/D5W-Rocephin 1gm 50 ML IV SCH (08:39)
[2018-12-05] MEDS: normal saline 1000ml 1,000 ML IV SCH ×2 (09:50→19:50)
--- NOTE | 2018-12-05 10:34 | NUR ---
PRAVIN/Gerson, art line and CVL dc'd by beverage specialistRN. Leif Sampson per Dr. Soto's order.
[2018-12-05] MEDS: HYDROcodone/acetaminophen 10/325mg tab PO PRN (15:07)
[2018-12-05] MEDS: insulin regular, human 100 UNIT in normal saline 100ml IV soln 100 ML IV SCH ×2 (17:20)
--- NOTE | 2018-12-05 18:00 | NUR ---
Patient in room CICU 2009. I have received report from Jocelynn IBRAHIM and had the opportunity to ask questions and assume patient care.
--- NOTE | 2018-12-05 18:18 | NUR ---
Problems reprioritized. Patient report given, questions answered & plan of care reviewed with LINA IBRAHIM. Addendum: 12/05/18 at 1818 by Jocelynn Fermin RN Amended: Links added.
--- NOTE | 2018-12-05 19:45 | NUR ---
Pt converted into A Fib Dr Soto notified. New orders received. Start amio gtt with bolus over 30 minutes and the start the gtt at 0.5 mg. Will continue to monitor.
[2018-12-05] MEDS ORDERED: amiodarone 150mg/dext, iso-os 100 ML IV ONE ×2 (19:55→20:09)
[2018-12-05] MEDS ORDERED: metoprolol tartrate 12.5mg (1/2 tablet) PO SCH (20:00)
[2018-12-05] MEDS ORDERED: amiodarone/D5 360MG/200ML BAG 200 ML IV ONE (20:10)
[2018-12-05] MEDS: heparin 25,000 UNIT/250ml bag 250 ML IV SCH (21:11)
[2018-12-05] MEDS: amiodarone/D5 360MG/200ML BAG 200 ML IV SCH (21:25)
[2018-12-06] VITALS (14 sets, daily range): BP systolic 101–118; BP diastolic 59–80
[2018-12-06] MEDS: normal saline 1000ml 1,000 ML IV SCH ×2 (05:50→16:00)
[2018-12-06 06:03] LABS: BASOPHILS % (AUTO) 0.1 % (0-1); EOSINOPHILS # (AUTO) 0.2 X10'3 (0-0.9); HEMATOCRIT 32.3 % (42.0-52.0); LYMPHOCYTES # (AUTO) 0.8 X10'3 (1.1-4.8); LYMPHOCYTES % (AUTO) 10.7 % (21-51); MEAN CORPUSCULAR HEMOGLOBIN 30.1 PG (27.0-31.0); MEAN CORPUSCULAR HGB CONC 33.9 % (33.0-36.5); MEAN CORPUSCULAR VOLUME 88.8 FL (78-98); MEAN PLATELET VOLUME 9.6 FL (7.4-10.4); MONOCYTES # (AUTO) 0.6 X10'3 (0-0.9); NEUTROPHILS # (AUTO) 5.6 X10'3 (1.8-7.7); NEUTROPHILS % (AUTO) 78.2 % (42-75); PLATELET COUNT 162 X10'3 (140-440); RED BLOOD COUNT 3.64 X10'6 (4.70-6.10); RED CELL DISTRIBUTION WIDTH 13.1 % (11.5-14.5); WHITE BLOOD COUNT 7.2 X10'3 (4.5-11.0)
--- NOTE | 2018-12-06 06:19 | NUR ---
Problems reprioritized. Patient report given, questions answered & plan of care reviewed with Jocelynn Gabriel.
[2018-12-06 06:34] LABS: ALBUMIN 2.4 G/DL (3.4-5.0); ANION GAP 9 (8-16); BLOOD UREA NITROGEN 16 MG/DL (7-18); BUN/CREATININE RATIO 15.4 (5.4-32.0); CALCIUM 7.5 MG/DL (8.5-10.1); CHLORIDE 97 MMOL/L (99-107); CREATININE 1.04 MG/DL (0.60-1.10); GLUCOSE 125 MG/DL (70-104); MAGNESIUM 2.5 MG/DL (1.5-2.4); PHOSPHORUS 2.1 MG/DL (2.3-4.5); POTASSIUM 3.6 MMOL/L (3.5-5.1); SODIUM 130 MMOL/L (135-145); TOTAL CARBON DIOXIDE 24.4 MMOL/L (24-32); eGFR 73 ML/MIN
[2018-12-06 07:01] LABS: ACT @ 1.70 U 301 SEC (193-297); ACT @ 2.84 U 414 SEC (260-420); BASELINE ACT 142 SEC (101-148); PATIENT WEIGHT 98.0k KG
[2018-12-06 07:01] LABS: ACTIVATED CLOTTING TIME 122 SEC (101-148)
--- NOTE | 2018-12-06 07:03 | NUR ---
Patient in room [facility] 2009. I have received report from alisha IBRAHIM and had the opportunity to ask questions and assume patient care. Addendum: 12/06/18 at 0703 by Jocelynn Fermin RN Amended: Links added.
[2018-12-06] MEDS: mupirocin 2% nasal ointment 1gm UD NS SCH (07:36)
[2018-12-06] MEDS: aspirin 325mg tablet PO SCH (07:37)
[2018-12-06] MEDS: lactobacillus rhamnosus 10,000 MMU CELLS/CAPSULE PO SCH ×2 (07:37→20:22)
[2018-12-06] MEDS: atorvastatin 20mg tablet PO SCH (07:37)
[2018-12-06] MEDS: pantoprazole 40mg Tablet.DR PO SCH (07:37)
[2018-12-06] MEDS: carvedilol 6.25mg tablet PO SCH ×2 (07:37→20:22)
[2018-12-06] MEDS: losartan 25mg tablet PO SCH (07:41)
[2018-12-06] MEDS: HYDROcodone/acetaminophen 10/325mg tab PO PRN ×2 (07:58→20:21)
[2018-12-06] MEDS: K and/or MAG REPLACEMENT MC SCH (08:00)
--- NOTE | 2018-12-06 08:22 | NUR ---
Dr. Soto here to see pt. RN reminded him that pt. is still on Amio gtt and is in NSR. Stated pt. will transfer out of ICU today. Notified of pt's WNL blood sugars. Accu checks dc'd.
--- NOTE | 2018-12-06 08:37 | NUR ---
and Megha Au PA placing orders on pt. now. Told RN to only hang the one KCL bag, not the second one and to give KDUR instead.
[2018-12-06] MEDS ORDERED: magnesium 2GM in 50ml NS 50 ML IV ONE (08:40)
[2018-12-06] MEDS ORDERED: potassium Cl 20 mEq SR tablet PO STA (08:41)
[2018-12-06] MEDS: CefTRIAXone/D5W-Rocephin 1gm 50 ML IV SCH (08:53)
[2018-12-06] MEDS: amiodarone/D5 360MG/200ML BAG 200 ML IV SCH ×2 (09:07→19:58)
[2018-12-06] MEDS: diltiazem-D5W 125mg/125ml 125 ML IV SCH (09:15)
--- NOTE | 2018-12-06 10:00 | NUR ---
Patient in room MED 316. I have received report from Jocelynn IBRAHIM and had the opportunity to ask questions and assume patient care.
--- NOTE | 2018-12-06 10:28 | NUR ---
Pt. transferred to room 316 with all belongings in stable condition after giving report to Shawn IBRAHIM.
--- NOTE | 2018-12-06 13:57 | NUR ---
Initial: Pt admit w/ acute ST LA s/p CABG x1. PO increased to 50-75% NCS diet from previous. Pt seen by PRINCESS for written/verbal high protein ed. Pt resting and very groggy; RD left ed and contact information at bedside and encouraged to contact if any questions. RD also reviewed protein supplementation options and MVI for wound healing. LBM 12/03. Will monitor for ONS needs this admit. Rec: 1. advance to regular diet per MD given Na 130 2. monitor for ONS needs 3. routine bowel care 4. wt per rx Addendum: 12/06/18 at [address] Amended: Links added.
--- NOTE | 2018-12-06 18:00 | NUR ---
Patient in room MED 316. I have received report from ALEXANDRIA Escobar and had the opportunity to ask questions and assume patient care.
--- NOTE | 2018-12-06 18:15 | NUR ---
Problems reprioritized. Patient report given, questions answered & plan of care reviewed with Sima IBRAHIM.
[2018-12-07] VITALS (7 sets, daily range): BP systolic 90–120; BP diastolic 56–75
[2018-12-07] MEDS: normal saline 1000ml 1,000 ML IV SCH (01:50)
--- NOTE | 2018-12-07 06:30 | NUR ---
Problems reprioritized. Patient report given, questions answered & plan of care reviewed with ALEXANDRIA Rodgers.
--- NOTE | 2018-12-07 06:37 | NUR ---
Patient in room MED 307. I have received report from Hilario IBRAHIM and Judith IBRAHIM and had the opportunity to ask questions and assume patient care.
--- NOTE | 2018-12-07 06:37 | NUR ---
Problems reprioritized. Patient report given, questions answered & plan of care reviewed with Ana Maria IBRAHIM.
[2018-12-07 07:34] LABS: MAGNESIUM 2.3 MG/DL (1.5-2.4); POTASSIUM 3.8 MMOL/L (3.5-5.1)
[2018-12-07] MEDS: K and/or MAG REPLACEMENT MC SCH (08:00)
[2018-12-07] MEDS: lactobacillus rhamnosus 10,000 MMU CELLS/CAPSULE PO SCH ×2 (08:28→20:28)
[2018-12-07] MEDS: aspirin 325mg tablet PO SCH (08:29)
[2018-12-07] MEDS: atorvastatin 20mg tablet PO SCH (08:29)
[2018-12-07] MEDS: carvedilol 6.25mg tablet PO SCH ×2 (08:29→20:28)
[2018-12-07] MEDS: pantoprazole 40mg Tablet.DR PO SCH (08:29)
[2018-12-07] MEDS: losartan 25mg tablet PO SCH (08:29)
[2018-12-07] MEDS: amiodarone/D5 360MG/200ML BAG 200 ML IV SCH (08:31)
[2018-12-07] MEDS: diltiazem-D5W 125mg/125ml 125 ML IV SCH (08:35)
[2018-12-07] MEDS: HYDROcodone/acetaminophen 10/325mg tab PO PRN ×2 (09:34→18:36)
[2018-12-07] MEDS: CefTRIAXone/D5W-Rocephin 1gm 50 ML IV SCH (09:34)
[2018-12-07] MEDS ORDERED: furosemide 40mg/4ml inj IV ONE (09:55)
[2018-12-07] MEDS ORDERED: magnesium Cl slow-release 64mg tablet PO PRN (10:15)
[2018-12-07] MEDS ORDERED: bisacodyl 10mg suppository rectal RC PRN (10:15)
[2018-12-07] MEDS ORDERED: potassium Cl 20 mEq SR tablet PO PRN (10:15)
[2018-12-07] MEDS: guaiFENesin ER 600mg tablet PO SCH ×2 (10:32→20:31)
[2018-12-07] MEDS: docusate sod 100mg capsule PO SCH ×2 (10:32→20:27)
[2018-12-07] MEDS ORDERED: dabigatran 150mg capsule PO ONE (10:50)
[2018-12-07] MEDS: potassium Cl 20 mEq SR tablet PO PRN ×2 (11:04→20:38)
[2018-12-07] MEDS: amiodarone 200mg tablet PO SCH ×2 (11:05→20:27)
--- NOTE | 2018-12-07 12:00 | NUR ---
Patient had a run of afib, approximately [id number], asymptomatic. Patient is already taking amiodarone and pradaxa. Notified PRAVIN Arguello. No change in orders.
--- NOTE | 2018-12-07 18:00 | NUR ---
Patient in room MED 316. I have received report from ALEXANDRIA Rodgers and had the opportunity to ask questions and assume patient care.
--- NOTE | 2018-12-07 18:15 | NUR ---
Problems reprioritized. Patient report given, questions answered & plan of care reviewed with Hilario IBRAHIM and Judith IBRAHIM.
[2018-12-07] MEDS ORDERED: guaiFENesin ER 600mg tablet PO SCH (20:00)
[2018-12-07] MEDS ORDERED: amiodarone 200mg tablet PO SCH ×2 (20:00)
[2018-12-07] MEDS: dabigatran 150mg capsule PO SCH (20:31)
[2018-12-07] MEDS ORDERED: Melatonin 3mg tablet PO PRN (21:45)
[2018-12-08] MEDS: potassium Cl 20 mEq SR tablet PO PRN (00:42)
[2018-12-08 06:00] VITALS: BP 96/69
--- NOTE | 2018-12-08 06:00 | NUR ---
Problems reprioritized. Patient report given, questions answered & plan of care reviewed with ALEXANDRIA Rodgers and ALEXANDRIA Correa.
--- NOTE | 2018-12-08 06:36 | NUR ---
Patient in room MED 307. I have received report from Hilario IBRAHIM and Judith IBRAHIM and had the opportunity to ask questions and assume patient care.
--- NOTE | 2018-12-08 06:37 | NUR ---
Patient in room MED 316. I have received report from Hilario IBRAHIM and Judith IBRAHIM and had the opportunity to ask questions and assume patient care.
[2018-12-08 06:50] LABS: MAGNESIUM 2.3 MG/DL (1.5-2.4); POTASSIUM 4.1 MMOL/L (3.5-5.1)
[2018-12-08] MEDS: K and/or MAG REPLACEMENT MC SCH (08:00)
[2018-12-08] MEDS: guaiFENesin ER 600mg tablet PO SCH (08:01)
[2018-12-08] MEDS: lactobacillus rhamnosus 10,000 MMU CELLS/CAPSULE PO SCH (08:01)
[2018-12-08] MEDS: atorvastatin 20mg tablet PO SCH (08:01)
[2018-12-08] MEDS: aspirin 325mg tablet PO SCH (08:01)
[2018-12-08] MEDS: dabigatran 150mg capsule PO SCH (08:02)
[2018-12-08] MEDS: pantoprazole 40mg Tablet.DR PO SCH (08:02)
[2018-12-08] MEDS: amiodarone 200mg tablet PO SCH (08:02)
[2018-12-08] MEDS: CefTRIAXone/D5W-Rocephin 1gm 50 ML IV SCH (08:03)
[2018-12-08] MEDS: docusate sod 100mg capsule PO SCH (08:03)
[2018-12-08] MEDS: carvedilol 6.25mg tablet PO SCH (08:07)
[2018-12-08 11:00] VITALS: BP 106/68
[2018-12-08] MEDS ORDERED: COL100C PO (12:46)
[2018-12-08] MEDS ORDERED: AMIO200T40 PO (12:46)
[2018-12-08] MEDS ORDERED: DABI150C PO (12:46)
--- NOTE | 2018-12-08 15:20 | NUR ---
Patient discharged in stable condition by Dr Soto, Tito COSTELLO and Ariel COSTELLO. All discharge paperwork and instructions were reviewed with the patient and his fiance, they had no further questions at this time. His IVs were removed with the catheter tip intact, there was minimal bleeding and clean gauze and tape were applied. He left with written prescriptions for his new medications including a script for [place]. All belongings left with the patient. Patient was escorted out of the hospital via wheelchair accompanied by his fiance.
== END 2018-12-08 15:20 | disposition home health service (06) | DRG 235 ==
LOC: ER 14:06 → ED HOLD 15:50 → MED 3N 17:23 → CICU 2S 12-04 11:10 → MED 3N 12-06 10:34
PROVIDERS: ADMIT Family Medicine; ATTEND Family Medicine
PROC: B32T1ZZ Computerized Tomography (CT Scan) of Left Pulmonary Artery using Low Osmolar Contrast (ICD-10-PCS; 2018-12-01)
PROC: B3201ZZ Computerized Tomography (CT Scan) of Thoracic Aorta using Low Osmolar Contrast (ICD-10-PCS; 2018-12-01)
PROC: B32S1ZZ Computerized Tomography (CT Scan) of Right Pulmonary Artery using Low Osmolar Contrast (ICD-10-PCS; 2018-12-01)
PROC: 02100Z9 Bypass Coronary Artery, One Artery from Left Internal Mammary, Open Approach (ICD-10-PCS; 2018-12-04)
PROC: B543ZZA Ultrasonography of Right Jugular Veins, Guidance (ICD-10-PCS; 2018-12-04)
PROC: 02HR33Z Insertion of Infusion Device into Left Pulmonary Artery, Percutaneous Approach (ICD-10-PCS; 2018-12-04)
PROC: 02L70CK Occlusion of Left Atrial Appendage with Extraluminal Device, Open Approach (ICD-10-PCS; 2018-12-04)
PROC: 05HM33Z Insertion of Infusion Device into Right Internal Jugular Vein, Percutaneous Approach (ICD-10-PCS; principal; 2018-12-04 08:30)
DX: T82.855A Stenosis of coronary artery stent, initial encounter (principal); I21.3 ST elevation (STEMI) myocardial infarction of unspecified site; I25.110 Atherosclerotic heart disease of native coronary artery with unstable angina pectoris; E78.5 Hyperlipidemia, unspecified; F12.90 Cannabis use, unspecified, uncomplicated; Y83.1 Surgical operation with implant of artificial internal device as the cause of abnormal reaction of the patient, or of later complication, without mention of misadventure at the time of the procedure; I11.9 Hypertensive heart disease without heart failure; D72.829 Elevated white blood cell count, unspecified; I48.91 Unspecified atrial fibrillation; I48.0 Paroxysmal atrial fibrillation; Y92.89 Other specified places as the place of occurrence of the external cause; Z95.5 Presence of coronary angioplasty implant and graft; Z90.49 Acquired absence of other specified parts of digestive tract
CPT/HCPCS: 93306; 93312; 93325; 93458; 96361; 96372; 96374; 99285; C9607; Z7506; Z7508; 36415; 36600; 71045; 71046; 71275; 80048; 80053; 80061; 80320; 82330; 82435; 82803; 82947; 82948; 83036; 83605; 83690; 83735; 83880; 84100; 84132; 84295; 84478; 84484; 85018; 85025; 85027; 85347; 85610; 85730; 86885; 86900; 86901; 86920; 87040; 87070; 93005; 93880; 93970; 94002; 94010; 94668; 94760; 97110; 97116; 97162; 97530; 99152; 99153; A4620; A6257; A6258; A6449; A7000; A7048; C1725; C1751; C1760; C1769; C9113; G0378; J0171; J0282; J0690; J0696; J0780; J1644; J1650; J1815; J1885; J1940; J2001; J2060; J2250; J2270; J2370; J2405; J2440; J2765; J2795; J3010; J3246; J3370; J3475; J3480; J3490; J7030; J7120; P9045; Q2037; Q9967

== ENCOUNTER 2021-07-10 05:34 | Day surgery (SDC) | payer OTHER ==
[2021-07-05 14:03] LABS: BASOPHILS % (AUTO) 0.4 % (0-1); EOSINOPHILS # (AUTO) 0.2 X10'3 (0-0.9); LYMPHOCYTES # (AUTO) 1.4 X10'3 (1.1-4.8); MEAN CORPUSCULAR HEMOGLOBIN 30.4 PG (27.0-31.0); MEAN CORPUSCULAR HGB CONC 33.7 g/dL (33.0-36.5); MEAN CORPUSCULAR VOLUME 90.1 FL (78-98); MEAN PLATELET VOLUME 8.5 FL (7.4-10.4); MONOCYTES # (AUTO) 0.5 X10'3 (0-0.9); MONOCYTES % (AUTO) 6.9 % (2-12); NEUTROPHILS # (AUTO) 5.6 X10'3 (1.8-7.7); NEUTROPHILS % (AUTO) 72.7 % (42-75); PRE OP HEMATOCRIT 44.4 % (42.0-52.0); PRE OP PLATELET COUNT 202 X10'3 (140-440); RED BLOOD COUNT 4.92 X10'6 (4.70-6.10); RED CELL DISTRIBUTION WIDTH 13.8 % (11.5-14.5)
[2021-07-05 14:20] LABS: ALBUMIN 4.2 G/DL (3.4-5.0); ALBUMIN/GLOBULIN RATIO 1.5 (1.1-1.5); ALKALINE PHOSPHATASE 56 IU/L (46-116); BLOOD UREA NITROGEN 19 MG/DL (7-18); BUN/CREATININE RATIO 16.5 (5.4-32.0); CALCIUM 8.5 MG/DL (8.5-10.1); CHLORIDE 102 MMOL/L (99-107); CREATININE 1.15 MG/DL (0.60-1.10); PRE OP ALT 30 U/L (30-65); PRE OP ANION GAP 10 (8-16); PRE OP AST 20 U/L (10-37); PRE OP GLUCOSE 102 MG/DL (70-104); PRE OP POTASSIUM 4.3 MMOL/L (3.4-5.1); PRE OP SODIUM 140 MMOL/L (135-145); TOTAL CARBON DIOXIDE 28.3 MMOL/L (24-32); eGFR 64 ML/MIN
[~2021-07-10] VITALS: Ht 185.4 cm; Wt 97.2 kg
[2021-07-10] VITALS (17 sets, daily range): BP systolic 113–166; BP diastolic 72–97
[~2021-07-10 05:34] MED LIST changes: +ASPI-611 PO; +ATOR-2 PO; +CARV6.253 PO; +DOCUMENT DATE & TIME OF BETA-BLOCKER PO ONE; +LOSA25TA41 PO; +OMEP20TA5 PO; +cefazolin/dext.iso 2gm/100ml IV ONE; +famotidine 20mg tablet PO ONE; -heparin 10,000 units/1 ML INJ ONE; +ringers solution, lacted 1,000 ML IV SCH
[2021-07-10] MEDS ORDERED: BUPIVAcaine 0.5% inj/PF 30 ML ONE (06:54)
[2021-07-10] MEDS ORDERED: sevoflurane 250ml liquid IH ONE (08:19)
[2021-07-10] MEDS ORDERED: fentaNYL/PF 50MCG/1 ML 2ML syringe ONE (08:22)
[2021-07-10] MEDS ORDERED: propofol inj 20 ML IV ONE (08:23)
[2021-07-10] MEDS ORDERED: rocuronium 10mg/ml inj IV ONE (08:23)
[2021-07-10] MEDS ORDERED: midazolam 1 mg/ML 2ml injection ONE (08:23)
[2021-07-10] MEDS ORDERED: BUPIVAcaine 0.5% inj/PF 30 ml vial IJ ONE (09:00)
[2021-07-10] MEDS ORDERED: ringers solution, lacted 1,000 ML IV SCH (09:15)
[2021-07-10] MEDS ORDERED: ondansetron/PF 4mg/2ml inj IV PRN (09:15)
[2021-07-10] MEDS ORDERED: proCHLORperazine 10 MG/2 ml inj IV PRN (09:15)
[2021-07-10] MEDS ORDERED: meperidine/PF 25mg/ml syringe IV PRN ×3 (09:15)
[2021-07-10] MEDS ORDERED: morphine 4 MG/ML inj SYRINge IV PRN (09:15)
[2021-07-10] MEDS ORDERED: morphine 2 MG/ML inj. syringe IV PRN (09:15)
[2021-07-10] MEDS ORDERED: dexamethasone sod phosphate 4mg/ml inj. ONE (09:58)
[2021-07-10] MEDS ORDERED: ondansetron/PF 4mg/2ml inj ONE (09:58)
[2021-07-10] MEDS ORDERED: neostigmine methylsulfate 1 MG/ML 10ml vial ONE (09:59)
[2021-07-10] MEDS ORDERED: glycopyrrolate 0.2mg/ml inj ONE (09:59)
--- NOTE | 2021-07-10 10:20 | NUR ---
Received from OR via , accompanied by Anesthesiologist and report given by Anesthesiolgist. PATIENT A&OX4, DENIES PAIN, V/S WNL, SCD ON , PIV 20G RUE, DERMABONDED LAPS SITES CLOSED CDI TO ABDOMEN.
[2021-07-10] MEDS ORDERED: HYDROcodone/acetaminophen 10/325mg tab PO ONE (10:35)
--- NOTE | 2021-07-10 11:14 | NUR ---
DAILY MARIJUANA SMOKER, LAST SMOKED YESTERDAY. Addendum: 07/10/21 at 1142 by Miya Cheng RN Amended: Links added.
[2021-07-10] MEDS ORDERED: LIDOcaine 2% 10ml TOPICAL JELLY (Urojet) MM ONE (14:50)
--- NOTE | 2021-07-10 15:33 | NUR ---
PATIENT UNABLE TO VOID WITH RESIDUAL OVER 300CC IN BLADDERSCAN. ORDER FOR F/C PER DR MALHOTRA. PATIENT TO BE D/C HOME W/ F/C PER HIS ORDERS
--- NOTE | 2021-07-10 16:10 | NUR ---
PATIENT WAS UNABLE TO VOID WITH POST VOID ATTEMPT LEFT BLADDER SCAN WITH OVER 450CC , F/C PLACED PER DR MALHOTRA AND INSTRUCTION ON CARE AND MAINTENANCE INSTRUCTION GIVE WITH HANDOUTS AND DEMO TO PATIENT AND HE HAS VERBALIZED UNDERSTANDING. LAP SITES CLEAR TO ABDOMEN WITH NO S/S OF ISSUES, PIV D/C AND SCD OFF. I HAVE REVIEWED D/C INSTRUCTIONS AND PATIENT HAVE VERBALIZED UNDERSTANDING WELL . PATIENT D/C WITH F/C AND ALL BELONGINGS AND INSTRUCTION AND HIS GAVE TRANSPORT
== END 2021-07-10 16:10 | disposition home or self-care (01) ==
LOC: PAS 05:34
PROVIDERS: ATTEND Surgery
DX: K40.90 Unilateral inguinal hernia, without obstruction or gangrene, not specified as recurrent (principal); K21.9 Gastro-esophageal reflux disease without esophagitis; I25.2 Old myocardial infarction; Z98.890 Other specified postprocedural states; Z95.1 Presence of aortocoronary bypass graft; Z95.5 Presence of coronary angioplasty implant and graft; Z79.899 Other long term (current) drug therapy
CPT/HCPCS: 36415; 49650; 71046; 80053; 82948; 85025; 93005; C1758; C1781; J1100; J2175; J2250; J2405; J2704; J2710; J3010; S2900; U0003; U0005; Z7506; Z7508; Z7512; A4215; A4618; J3490; J7120

== ENCOUNTER 2022-04-15 13:03 | Day surgery (SDC) | payer OTHER ==
[2022-04-15] VITALS (9 sets, daily range): BP systolic 104–124; BP diastolic 43–81
[~2022-04-15] VITALS: Ht 185.4 cm; Wt 95.4 kg
[~2022-04-15 13:03] MED LIST changes: -DOCUMENT DATE & TIME OF BETA-BLOCKER PO ONE; +OMEP20TA43 PO; -OMEP20TA5 PO; -cefazolin/dext.iso 2gm/100ml IV ONE; -famotidine 20mg tablet PO ONE; -ringers solution, lacted 1,000 ML IV SCH
[2022-04-15] MEDS ORDERED: ceFAZolin inj. 2,000 MG in dextrose 5%-water 100 ML IV ONE (13:35)
[2022-04-15] MEDS ORDERED: DAPA10TA PO (13:54)
[2022-04-15] MEDS ORDERED: SPIR25TA5 PO (13:54)
[2022-04-15] MEDS ORDERED: LOSA100T57 PO (13:54)
[2022-04-15 14:11] LABS: BASOPHILS % (AUTO) 0.6 % (0-1); EOSINOPHILS # (AUTO) 0.1 X10'3 (0-0.9); EOSINOPHILS % (AUTO) 1.7 % (0-6); HEMOGLOBIN 16.7 g/dl (14.0-17.9); LYMPHOCYTES # (AUTO) 1.2 X10'3 (1.1-4.8); LYMPHOCYTES % (AUTO) 16.9 % (21-51); MEAN CORPUSCULAR HEMOGLOBIN 29.3 PG (27.0-31.0); MEAN CORPUSCULAR HGB CONC 33.4 g/dL (33.0-36.5); MEAN CORPUSCULAR VOLUME 87.6 FL (78-98); MONOCYTES # (AUTO) 0.4 X10'3 (0-0.9); MONOCYTES % (AUTO) 5.7 % (2-12); NEUTROPHILS # (AUTO) 5.1 X10'3 (1.8-7.7); NEUTROPHILS % (AUTO) 75.1 % (42-75); PLATELET COUNT 182 X10'3 (140-440); RED BLOOD COUNT 5.71 X10'6 (4.70-6.10); RED CELL DISTRIBUTION WIDTH 13.6 % (11.5-14.5); WHITE BLOOD COUNT 6.8 X10'3 (4.5-11.0)
[2022-04-15 14:20] LABS: ALBUMIN 4.2 G/DL (3.4-5.0); ANION GAP 7 (8-16); BLOOD UREA NITROGEN 16 MG/DL (7-18); CALCIUM 8.9 MG/DL (8.5-10.1); CHLORIDE 104 MMOL/L (99-107); CREATININE 1.14 MG/DL (0.60-1.10); GLUCOSE 87 MG/DL (70-104); POTASSIUM 3.8 MMOL/L (3.5-5.1); SODIUM 137 MMOL/L (135-145); TOTAL CARBON DIOXIDE 25.7 MMOL/L (24-32); eGFR 65 ML/MIN
[2022-04-15 14:23] LABS: APTT 27 SECONDS (22-32)
[2022-04-15] MEDS ORDERED: LIDOcaine 1% W/epiNEPHrine 1:100,000 20ml vial ONE (16:05)
[2022-04-15] MEDS ORDERED: midazolam 1 mg/ML 2ml injection ONE (16:05)
[2022-04-15] MEDS ORDERED: fentaNYL/PF 50MCG/1 ML 2ML syringe ONE (16:06)
[2022-04-15] MEDS ORDERED: ceFAZolin 1000mg inj ONE (16:08)
[2022-04-15] MEDS ORDERED: HYDROcodone/acetaminophen 5mg/325mg tablet PO PRN (17:45)
[2022-04-15] MEDS ORDERED: HYDROcodone/acetaminophen 10/325mg tab PO PRN (17:45)
[2022-04-16] MEDS ORDERED: ceFAZolin/D5W- 1GM premix 50 ML IV SCH
== END 2022-04-15 17:50 | disposition home or self-care (01) ==
LOC: SSTAY O 13:03
PROVIDERS: ATTEND Internal Medicine Interventional Cardiology
DX: I25.5 Ischemic cardiomyopathy (principal); I42.0 Dilated cardiomyopathy; I25.2 Old myocardial infarction; I42.9 Cardiomyopathy, unspecified; I25.810 Atherosclerosis of coronary artery bypass graft(s) without angina pectoris; I48.91 Unspecified atrial fibrillation; I11.0 Hypertensive heart disease with heart failure; I50.9 Heart failure, unspecified; K21.9 Gastro-esophageal reflux disease without esophagitis; E78.5 Hyperlipidemia, unspecified; Z79.01 Long term (current) use of anticoagulants; Z79.82 Long term (current) use of aspirin; Z79.899 Other long term (current) drug therapy; Z95.5 Presence of coronary angioplasty implant and graft; Z88.8 Allergy status to other drugs, medicaments and biological substances
CPT/HCPCS: 33249; 36415; 80048; 85025; 85610; 85730; 93005; 99152; 99153; J0690; J2250; J3010; J3490; A4565; A4620; A6258; A6449; J7030